=== PATIENT | female | born 1990 | race Two or more races ===

== ENCOUNTER → 2025-08-30 | Emergency (ER) | payer OTHER ==
[~2025-08-30] VITALS: Ht 157.5 cm; Wt 72.0 kg
[2025-08-30 03:04] VITALS: BP 116/85; PULSE 102; RESP 16; TEMP 97.9; O2SAT 98
== END | disposition still patient (30) ==
LOC: EMS 02:54
DX: R05.9 Cough, unspecified (principal); F41.9 Anxiety disorder, unspecified; Z65.3 Problems related to other legal circumstances
CPT/HCPCS: 71046; 99283